=== PATIENT | male | born 1985 | race Two or more races ===

== ENCOUNTER 2020-03-23 09:57 | Emergency (ER) | payer OTHER, SELFPAY ==
[~2020-03-23] VITALS: Ht 180.3 cm; Wt 82.0 kg
--- NOTE | 2020-03-23 10:59 | NUR ---
Pt arrival via triage, states CP and SOB. Cant state approx onset, pt is very anxious. States that he is having a panic attack. Recently took Adderall Because "I was sleeping too much".
[2020-03-23 11:04] LABS: BASOPHILS % (AUTO) 1 % (0-1); EOSINOPHILS % (AUTO) 1 % (1-7); LYMPHOCYTES % (AUTO) 17 % (22-44); MEAN CORPUSCULAR HEMOGLOBIN 31.5 pg (27.5-34.5); MEAN CORPUSCULAR HGB CONC 34.4 g/dL (33.2-36.2); MONOCYTES % (AUTO) 8 % (2-9); NEUTROPHILS % (AUTO) 74 % (42-75); PLATELET COUNT 275 x10^3/uL (130-400); RED BLOOD COUNT 5.58 x10^6/uL (4.38-5.82); RED CELL DISTRIBUTION WIDTH 12.6 % (9.4-14.8)
[2020-03-23 11:10] LABS: ALANINE AMINOTRANSFERASE 13 U/L (12-78); ALBUMIN 4.1 g/dL (3.4-5.0); ALKALINE PHOSPHATASE 103 U/L (45-117); ANION GAP 9 mmol/L (5-15); BILIRUBIN,TOTAL 0.9 mg/dL (0.2-1.0); CALCIUM 8.8 mg/dL (8.5-10.1); CHLORIDE 107 mmol/L (98-107); CREATININE 1.16 mg/dL (0.7-1.3); MD NO; TOTAL PROTEIN 8.1 g/dL (6.4-8.2)
[2020-03-23 11:11] LABS: TROPONIN I < 0.015 ng/mL (0.000-0.045)
[2020-03-23 12:27] VITALS: BP 125/89
== END 2020-03-23 12:30 | disposition home or self-care (01) ==
LOC: ED 12:10
DX: R07.89 Other chest pain (principal); M79.602 Pain in left arm; R06.02 Shortness of breath; I44.5 Left posterior fascicular block; I51.7 Cardiomegaly; R00.0 Tachycardia, unspecified; R94.31 Abnormal electrocardiogram [ECG] [EKG]; Z86.718 Personal history of other venous thrombosis and embolism
CPT/HCPCS: 36415; 71045; 80053; 84484; 85025; 93005; 99285